=== PATIENT | female | born 1950 | race Caucasian/White ===

== ENCOUNTER → 2017-03-04 | Outpatient (CLI) | payer BC ==
[~2017-03-04] MED LIST: COLESTID1 GM PO
== END | disposition home or self-care (01) ==
LOC: CDC 09:55
DX: Z01.810 Encounter for preprocedural cardiovascular examination (principal); M25.512 Pain in left shoulder; M75.42 Impingement syndrome of left shoulder; M75.02 Adhesive capsulitis of left shoulder; I49.1 Atrial premature depolarization
CPT/HCPCS: 93000

== ENCOUNTER 2017-08-12 21:23 | Observation (INO) | payer BC ==
[~2017-08-12] VITALS: Ht 160 cm; Wt 100.8 kg
[2017-08-12 22:05] LABS: HEMATOCRIT 42.3 % (36.0-46.0); HEMOGLOBIN 14.4 G/DL (11.9-15.5); MCH 28.9 PG (29.0-34.0); MCV 84.9 FL (83-99); PLATELET COUNT 362 K/uL (156-360); RBC DIS.WIDTH-CV 13.5 % (11.8-14.6); RBC DIS.WIDTH-SD 41.5 % (39-53); RED BLOOD COUNT 4.98 M/uL (3.80-5.20); WHITE BLOOD COUNT 9.3 K/uL (4.1-10.2)
[2017-08-12 22:14] LABS: CHLORIDE 104 mEq/L (99-109); POTASSIUM 3.6 mEq/L (3.7-5.4); SODIUM 139 mEq/L (136-147)
[2017-08-12 22:16] LABS: GLUCOSE 109 mg/dL (70-99)
[2017-08-12 22:20] LABS: CREATININE 0.9 mg/dL (0.6-1.3); GFR ESTIMATE (CALCULATED) > 59 mL/min/
[2017-08-12 22:21] LABS: UREA NITROGEN (BUN) 14 mg/dL (9-23)
[2017-08-12 22:24] LABS: TROP-I INTERPRETATION NEGATIVE; TROPONIN-I < 0.01 ng/mL (0.0-0.30)
[2017-08-12] MEDS ORDERED: LEVO-T88 MCG PO (23:27)
[2017-08-12] MEDS ORDERED: PROAIR HFA8.5 GM IH (23:28)
[2017-08-12] MEDS ORDERED: VENLAFAXINE HC150 M1 PO (23:28)
[2017-08-12] MEDS ORDERED: VALIUM5 MG PO (23:29)
[2017-08-12] MEDS ORDERED: LOW DOSE ASPIRI81 M1 PO (23:29)
[2017-08-12] MEDS ORDERED: AVAPRO75 MG PO (23:29)
[2017-08-13 02:31] VITALS: BP 164/77
[2017-08-13 05:02] LABS: TROP-I INTERPRETATION NEGATIVE; TROPONIN-I < 0.01 ng/mL (0.0-0.30)
[2017-08-13 05:26] LABS: HDL CHOLESTEROL 43 MG/DL (Desirable>=50); LDL CHOLESTEROL 164 mg/dL (Desirable<100); NON-HDL CHOLESTEROL 176 mg/dL (Desirable<160); TOTAL CHOLESTEROL 219 mg/dL (Desirable<200); TRIGLYCERIDES 60 MG/DL (Normal: <150)
[2017-08-13 08:13] LABS: THYROTROPIN (TSH) 1.6 MIU/L (0.4-5.5)
[2017-08-13 08:50] VITALS: BP 139/73
[2017-08-13 11:02] LABS: TROP-I INTERPRETATION NEGATIVE; TROPONIN-I < 0.01 ng/mL (0.0-0.30)
[2017-08-13 11:25] VITALS: BP 140/68
[2017-08-13 11:34] VITALS: BP 133/81
[2017-08-13] MEDS ORDERED: AZITHROMYCIN500 MG PO (13:17)
[2017-08-13] MEDS ORDERED: MEDROL DOSEPAK4 MG PO (13:17)
[2017-08-13] MEDS ORDERED: PRILOSEC OTC20 MG PO (13:18)
== END 2017-08-13 15:43 | disposition home or self-care (01) ==
LOC: EME 21:23 → EDOF 08-13 00:46 → ENRESERV 08-13 00:52 → 5WEST 08-13 02:22 → ENPENDDIS 08-13 13:29 → 5WEST 08-13 15:43
PROVIDERS: Physician Assistant
DX: R07.89 Other chest pain (principal); J20.9 Acute bronchitis, unspecified; I10 Essential (primary) hypertension; E78.5 Hyperlipidemia, unspecified; E03.9 Hypothyroidism, unspecified; F41.9 Anxiety disorder, unspecified; F32.9 Major depressive disorder, single episode, unspecified; R00.0 Tachycardia, unspecified; Z79.82 Long term (current) use of aspirin; Z90.49 Acquired absence of other specified parts of digestive tract; Z90.710 Acquired absence of both cervix and uterus; Z80.0 Family history of malignant neoplasm of digestive organs; Z82.49 Family history of ischemic heart disease and other diseases of the circulatory system; Z88.0 Allergy status to penicillin; Z88.1 Allergy status to other antibiotic agents
CPT/HCPCS: 71046; 71275; 80048; 80061; 84443; 84484; 85027; 87502; 93005; 94640; 94640 76; 99281; 99284; G0378; J1644; J2920; J2930

== ENCOUNTER 2017-11-13 08:03 | Emergency (ER) | payer BC ==
[~2017-11-13] VITALS: Ht 160 cm; Wt 97.5 kg
[~2017-11-13 08:03] MED LIST changes: +AVAPRO75 MG PO; +AZITHROMYCIN500 MG PO; +LEVO-T88 MCG PO; +LOW DOSE ASPIRI81 M1 PO; +MEDROL DOSEPAK4 MG PO; +PRILOSEC OTC20 MG PO; +PROAIR HFA8.5 GM IH; +VALIUM5 MG PO; +VENLAFAXINE HC150 M1 PO
[2017-11-13 08:33] LABS: HEMATOCRIT 37.1 % (36.0-46.0); HEMOGLOBIN 12.7 G/DL (11.9-15.5); MCH 29.3 PG (29.0-34.0); MCHC 34.2 G/DL (30.0-36.0); MCV 85.5 FL (83-99); PLATELET COUNT 242 K/uL (156-360); RBC DIS.WIDTH-CV 13.5 % (11.8-14.6); RBC DIS.WIDTH-SD 42.5 % (39-53); RED BLOOD COUNT 4.34 M/uL (3.80-5.20); WHITE BLOOD COUNT 7.5 K/uL (4.1-10.2)
[2017-11-13 08:55] LABS: ALBUMIN 4.2 G/DL (3.2-4.8); ALKALINE PHOSPHATASE 74 IU/L (3-129); ALT (GPT) 20 IU/L (3-49); AST (GOT) 15 IU/L (2-34); CHLORIDE 103 MEQ/L (99-109); CREATININE 0.8 MG/DL (0.6-1.3); GFR ESTIMATE (CALCULATED) > 59 mL/min/; GLUCOSE 120 mg/dL (70-99); SODIUM 138 MEQ/L (136-147); TOTAL BILIRUBIN 0.8 MG/DL (0.0-1.0); TOTAL PROTEIN 7.1 G/DL (6.4-8.3); UREA NITROGEN (BUN) 16 mg/dL (9-23)
[2017-11-13] MEDS ORDERED: PREDNISONE20 MG PO (09:49)
[2017-11-13] MEDS ORDERED: MOTRIN800 MG PO (09:49)
[2017-11-13] MEDS ORDERED: VENTOLIN HFA18 GM IH (09:49)
[2017-11-13 09:53] LABS: APPEARANCE CLEAR ((CLEAR)); BILIRUBIN NEGATIVE; BLOOD NEGATIVE; COLOR YELLOW ((YELLOW)); GLUCOSE (STRIP) NEGATIVE; KETONES NEGATIVE; LEUKOCYTES NEGATIVE; NITRITE NEGATIVE; PROTEIN (STRIP) NEGATIVE; SPECIFIC GRAVITY 1.018 (1.000-1.030); UCUL ADDED? NO; UROBILINOGEN 0.2 MG/DL (0.2-1.0)
[2017-11-13 10:08] VITALS: BP 115/80
== END 2017-11-13 10:12 | disposition home or self-care (01) ==
LOC: EME 08:03
PROVIDERS: Nurse Practitioner Family
DX: J06.9 Acute upper respiratory infection, unspecified (principal); F32.9 Major depressive disorder, single episode, unspecified; I10 Essential (primary) hypertension; F41.9 Anxiety disorder, unspecified; Z88.0 Allergy status to penicillin
CPT/HCPCS: 71046; 80053; 81003; 85027; 94640; 99281; 99284; J7512